=== PATIENT | male | born 1995 | race Caucasian/White ===

== ENCOUNTER 2022-08-17 16:21 | Emergency (ER) | payer OTHER ==
[~2022-08-17] VITALS: Ht 172.7 cm; Wt 77.3 kg
[2022-08-17 16:30] VITALS: BP 145/79
[2022-08-17] MEDS ORDERED: CYCL10TA16 PO (16:42)
[2022-08-17] MEDS ORDERED: KETOROLAC TROMETHAMINE 30 MG/ML VIAL IM ONE (17:00)
[2022-08-17] MEDS ORDERED: LIDOCAINE 5% TRANSDERMAL PATCH TD ONE (17:00)
[2022-08-17] MEDS ORDERED: ACETAMINOPHEN 500 MG TABLET PO ONE (17:00)
[2022-08-17] MEDS ORDERED: IBUP-1492 PO (18:04)
[2022-08-17] MEDS ORDERED: LIDO700A15 TP (18:04)
[2022-08-17] MEDS ORDERED: ACET-66 PO (18:04)
== END 2022-08-17 18:32 | disposition home or self-care (01) ==
LOC: EMS 16:25
DX: M54.89 Other dorsalgia (principal)
CPT/HCPCS: 99283; 72070; 96372; J1885